=== PATIENT | female | born 1945 | race Caucasian/White ===

== ENCOUNTER 2024-10-23 09:21 | Outpatient (REF) | payer MEDICARE, SELFPAY ==
[2024-10-23 10:13] LABS: Chloride* 108 mmol/L (96-114); Potassium* 4.2 mmol/L (3.6-5.1); Sodium* 138 mmol/L (135-149)
[2024-10-23 10:15] LABS: Creatinine* 0.8 mg/dL (0.5-1.5); Estimated Glomerular Filt Rate 74 ml/min
[2024-10-23 10:16] LABS: Anion Gap 6 mEq/L (7-15); Blood Urea Nitrogen* 24 mg/dL (7-30); Carbon Dioxide* 24 mmol/L (20-32); Glucose* 85 mg/dL (60-115)
== END 2024-10-23 09:22 | disposition home or self-care (01) ==
LOC: NPINS 09:21
PROVIDERS: PCP Family Medicine; Visit Provider Family Medicine
DX: G30.1 Alzheimer's disease with late onset (principal)
CPT/HCPCS: 80048